=== PATIENT | female | born 1985 | race Caucasian/White ===

== ENCOUNTER 2017-05-07 07:37 | Emergency (ER) | payer MEDICAID, OTHER ==
[~2017-05-07] VITALS: Ht 154.9 cm; Wt 90.7 kg
[2017-05-07 07:42] VITALS: BP_SYST 131
[2017-05-07 08:52] LABS: BILIRUBIN,URINE NEGATIVE (NEGATIVE); BLOOD, URINE 1+ (NEGATIVE); CLARITY/URINE CLEAR (CLEAR); COLOR,URINE YELLOW (YELLOW); GLUCOSE,URINE NEGATIVE (NEGATIVE); KETONES,URINE NEGATIVE (NEGATIVE); LEUKOCYTE ESTERASE ,URINE TRACE (NEGATIVE); NITRITE, URINE POSITIVE (NEGATIVE); PROTEIN URINE TRACE (NEGATIVE); UROBILINOGEN,URINE 0.2 (0.2-1.0)
[2017-05-07 08:53] LABS: BACTERIA,URINE MODERATE /HPF (None Seen); RBC,URINE 0-3 /HPF (0-3)
[2017-05-07 09:19] VITALS: BP_SYST 125
== END 2017-05-07 09:15 | disposition home or self-care (01) ==
LOC: SED 07:37
DX: N39.0 Urinary tract infection, site not specified (principal)
CPT/HCPCS: 81000-TC; 87086; 99284

== ENCOUNTER 2017-05-31 17:37 | Emergency (ER) | payer MEDICAID ==
[~2017-05-31] VITALS: Ht 157.5 cm; Wt 90.7 kg
[2017-05-31 17:49] VITALS: BP_SYST 164
[2017-05-31] MEDS ORDERED: BACITRACIN 1 GM OINT TP ONE (18:15)
[2017-05-31] MEDS ORDERED: MORPHINE 4 MG/ML INJ. SYRINGE IM ONE (18:15)
[2017-05-31] MEDS ORDERED: DIPHENHYDRAMINE INJ 50 MG/ML VIAL IM ONE (18:15)
[2017-05-31] MEDS ORDERED: KETOROLAC TROMETHAMINE 60 MG/2 ML VIAL IM ONE (19:00)
[2017-05-31 20:02] VITALS: BP_SYST 145
== END 2017-05-31 20:02 | disposition home or self-care (01) ==
LOC: SED 17:37
DX: T20.16XA Burn of first degree of forehead and cheek, initial encounter (principal); T21.11XA Burn of first degree of chest wall, initial encounter; T22.112A Burn of first degree of left forearm, initial encounter; Z90.49 Acquired absence of other specified parts of digestive tract; Z98.51 Tubal ligation status; X11.8XXA Contact with other hot tap-water, initial encounter; Y93.89 Activity, other specified; Y92.89 Other specified places as the place of occurrence of the external cause; Y99.8 Other external cause status
CPT/HCPCS: 16000; 96372; 99284; J1200; J1885; J2270

== ENCOUNTER 2017-06-01 16:41 | Emergency (ER) | payer MEDICAID ==
[~2017-06-01] VITALS: Ht 157.5 cm; Wt 90.7 kg
[2017-06-01 16:46] VITALS: BP_SYST 149
--- NOTE | 2017-06-01 16:46 | NUR ---
Placed in room 03 . Placed on clinical research monitor, blood pressure machine and pulse oximeter. To gown for exam. Side rails up. Report given to Fatou.
--- NOTE | 2017-06-01 16:48 | NUR ---
Patient brought in by S. Patient reports that she was seen yesterday and was given Toradol, Morphine and Benadryl. Patient was at home when she had an sudden onset of LLQ Abdominal pain as well as numbness and tingling bilaterally to hand and legs and dizziness. Patient reports she fel the urge to defecate but was feeling constipated. Upon arrival, patient ambulated to restroom and had a bowel movement. Patient states " all the pain is gone." Denies any pain.
--- NOTE | 2017-06-01 16:50 | NUR ---
ER at bedside examining patient.
[2017-06-01 18:13] VITALS: BP_SYST 138
--- NOTE | 2017-06-01 18:13 | NUR ---
Patient given written and verbal discharge instructions and verbalizes understanding. ER MD discussed with patient the results and treatment provided. Patient in stable condition. ID arm band removed. Rx of Colace given. Patient educated on pain management and to follow up with PMD in 2-3 days. Pain Scale 0/10 Opportunity for questions provided and answered.
== END 2017-06-01 18:13 | disposition home or self-care (01) ==
LOC: SED 16:41
DX: K59.00 Constipation, unspecified (principal); R03.0 Elevated blood-pressure reading, without diagnosis of hypertension; Z68.36 Body mass index [BMI] 36.0-36.9, adult; E66.9 Obesity, unspecified; Z98.51 Tubal ligation status; Z90.49 Acquired absence of other specified parts of digestive tract
CPT/HCPCS: 74000-TC; 81025; 99283

== ENCOUNTER 2021-05-14 17:00 | Emergency (ER) | payer MEDICAID ==
[~2021-05-14] VITALS: Ht 154.9 cm; Wt 58.5 kg
[2021-05-14 17:05] VITALS: BP_SYST 138
--- NOTE | 2021-05-14 17:05 | NUR ---
PT TO REMAIN IN THE ER LOBBY UNTIL ER BED BECOMES AVAILABLE.
--- NOTE | 2021-05-14 17:10 | NUR ---
PT AAO AND AMBULATORY REPORTING RIGHT FOOT PAIN. PT REPORTS THAT SHE ACCIDENTLY KICKED HER BED AND REPORTS INCREASED PAIN IN 3RD AND FOURTH TOE.
--- NOTE | 2021-05-14 17:15 | NUR ---
DR. BENITEZ TO TRIAGE TO ASSESS.
--- NOTE | 2021-05-14 19:59 | NUR ---
BOOT APPLIED TO RIGHT FOOT AND CRUTCHES GIVEN TO PATIENT. RETURN DEMONTRATION GIVEN. PATIENT ABLE TO USE CRUTCHES WITHOUT DIFFICULTIES. PULSES WNL.
[2021-05-14 20:19] VITALS: BP_SYST 138
--- NOTE | 2021-05-14 20:20 | NUR ---
Patient given written and verbal discharge instructions and verbalizes understanding. DR. EMMANUEL PERDOMO MD discussed with patient the results and treatment provided. Patient in stable condition. ID arm band removed. IV catheter removed intact and dressing applied, no active bleeding. Patient educated on pain management and to follow up with PMD. Pain Scale 0/10. Opportunity for questions provided and answered. Medication side effect fact sheet provided.
== END 2021-05-14 20:20 | disposition home or self-care (01) ==
LOC: SED 17:00
DX: S92.331A Displaced fracture of third metatarsal bone, right foot, initial encounter for closed fracture (principal); W22.8XXA Striking against or struck by other objects, initial encounter; Y93.89 Activity, other specified; Y92.89 Other specified places as the place of occurrence of the external cause; Y99.8 Other external cause status
CPT/HCPCS: 99283